=== PATIENT | male | born 1995 | race Two or more races ===

== ENCOUNTER 2017-05-18 17:40 | Emergency (ER) | payer BC ==
[2017-05-18 18:24] VITALS: BP 130/71
[2017-05-18] MEDS ORDERED: Bacitracin Oint 1 GM U/D Packet TOP ONE (18:45)
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
== END 2017-05-18 19:26 | disposition home or self-care (01) ==
LOC: JP.ED 17:40
DX: S01.21XA Laceration without foreign body of nose, initial encounter (principal); S01.111A Laceration without foreign body of right eyelid and periocular area, initial encounter; W22.8XXA Striking against or struck by other objects, initial encounter
CPT/HCPCS: 12013; 99283-25

== ENCOUNTER 2019-08-17 20:09 | Emergency (ER) | payer BC ==
[2019-08-17 20:46] VITALS: BP 155/92; PULSE 89
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
== END 2019-08-17 22:38 | disposition home or self-care (01) ==
LOC: JP.ED 20:09
DX: S02.40DA Maxillary fracture, left side, initial encounter for closed fracture (principal); Y04.8XXA Assault by other bodily force, initial encounter
CPT/HCPCS: 70450; 70486; 99284-25